=== PATIENT | female | born 1985 | race Caucasian/White ===

== ENCOUNTER 2019-10-31 17:09 | Emergency (ER) | payer SELFPAY ==
[2019-10-31 17:10] VITALS: BP 120/68; PULSE 81; RESP 16; TEMP 36.8; O2SAT 100; BMI 23.9
--- NOTE | 2019-10-31 17:17 | W.ED.WOUNDLC ---
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 It bit her on the right calf and has 1 puncture wound. Dog was shot. They did not contact animal control but she still has access to the dog. Patient has pain at the site she rates a 6 out of 10. She denies any worsening or improving factors. She had a tetanus done 10 years ago. Onset (ago): minute(s) Associated symptoms: Denies chills, fever(s), nausea or vomiting Review of Systems Const: Denies: fever, chills, body aches or change in appetite Eyes: Denies: blurry vision or eye discomfort ENMT: Denies: throat pain or dental pain Card: Denies: chest pain Resp: Denies: shortness of breath GI: Denies: abdominal pain, nausea, vomiting or diarrhea : Denies: painful urination Musc: Denies: neck pain or back pain Skin/Breast: Denies: rash Neuro: Denies: headache Psych: Denies: depression Amari/Lymph: Denies: easy bruising All/Imm: Denies: hives PFSH ED PFSH: Social History Smoking and tobacco status: current every day smoker Physical Exam Const: COMMON NORMALS: no apparent distress, oriented x3 and healthy appearing HENMT: COMMON NORMALS: normocephalic and head/scalp atraumatic HEAD & SCALP: normocephalic and atraumatic Eye: COMMON NORMALS: PERRL and EOMs intact bilaterally PUPIL: Yes PERRL Neck/C-Spine: COMMON NORMALS: full ROM and supple Chest: COMMONS NORMALS: inspection of chest normal and palpation of chest normal Resp: COMMON NORMALS: normal respiratory effort, no retractions, no use of accessory muscles and clear to auscultation bilaterally AUSCULTATION: clear to auscultation bilaterally Cardio: COMMON NORMALS: regular rate, regular rhythm and no murmurs RATE: regular rate RHYTHM: regular rhythm GI: COMMON NORMALS: normal to inspection, nondistended, normoactive bowel sounds, soft to palpation, non-tender and no masses PALPATION: Yes soft Extremity: COMMON NORMALS: normal to inspection and full ROM Neuro: COMMON NORMALS: oriented x3, moves all extremities and no focal motor deficits Psych: COMMON NORMALS: mental status grossly normal, thought process normal and cooperative THOUGHT PROCESS: normal thought process Skin: COMMON NORMALS: no rashes or lesions noted and no wounds NARRATIVE SKIN EXAM: Puncture wound to right lower leg GENERAL SKIN EXAM: no rashes or lesions noted Course Vital Signs: Vital signs: Vital Signs Temperature 98.2 F 10/31/19 17:10 Pulse Rate 81 10/31/19 17:10 Respiratory Rate 16 10/31/19 17:10 Blood Pressure 120/68 10/31/19 17:10 Pulse Oximetry 100 10/31/19 17:10 MDM - Wound/Laceration MDM Narrative: Medical decision making narrative: Patient presents here with dog bite. Patient has no large laceration and does not require sutures. Will place patient on antibiotics for prophylaxis. Patient given return instructions for signs of infection. They did shoot the dog in the head and buried it and shot status was not known. We will start her on rabies vaccine as well. Patient is stable for discharge at this time. Patient's tetanus was updated as well Discharge Plan Discharge Patient Disposition: Home, Self-Care Clinical Impression: Dog bite Qualifiers: Encounter type: initial encounter Qualified Code(s): W54.0XXA - Bitten by dog, initial encounter Condition: Stable Prescriptions: [place] 5-325 mg tablet 1 tab PO Q6H PRN (Reason: pain) Qty: 10 RF: 0 Augmentin 875-125 mg tablet 1 tab PO BID Qty: 14 RF: 0 Discharge Orders: Discharge Order (Routine); Ordered 10/31/19 Ordered By: Mason Alegria Discharge Diet: Advance as tolerated Discharge Activity: Resume usual activity Patient Instructions: Animal Bite (ED), Rabies (ED) Coding Level of Care Code ED [employer] for Balwinder Fwangelo Exam Comprehensive
[2019-10-31] MEDS: tetanus-dipt-pertussis 0.5 mL SDV IM (17:27)
[2019-10-31] MEDS: acetaminophen 500 mg Tablet 1000 MG PO (18:12)
[2019-10-31] MEDS: rabies vaccine 2.5 unit SDV IM (18:13)
[2019-10-31] MEDS: rabies IG 300 unit/mL SDV 1 mL 1200 UNIT INFILTRATI (18:15)
[2019-10-31 18:24] VITALS: BP 110/66; PULSE 77; O2SAT 100
== END 2019-10-31 18:24 | disposition home or self-care (01) ==
PROVIDERS: Emergency Provider Emergency Medicine
DX: S81.831A Puncture wound without foreign body, right lower leg, initial encounter (principal); W54.0XXA Bitten by dog, initial encounter; F17.200 Nicotine dependence, unspecified, uncomplicated
CPT/HCPCS: 12345; 90375; 90471; 90675; 90715; 99281; 99283

== ENCOUNTER → 2022-05-31 16:11 | Outpatient (BNVA) | payer MEDICAID, SELFPAY | PROVIDERS: Visit Provider Registered Nurse Neonatal Intensive Care | DX: M79.671 Pain in right foot (principal) | CPT/HCPCS: 73630 ==

== ENCOUNTER → 2023-08-23 11:17 | Outpatient (BNVA) | payer MEDICAID, SELFPAY | PROVIDERS: Visit Provider Registered Nurse Neonatal Intensive Care | DX: S90.32XA Contusion of left foot, initial encounter (principal); W22.8XXA Striking against or struck by other objects, initial encounter | CPT/HCPCS: 73630 ==

== ENCOUNTER 2024-08-05 08:45 | Outpatient (CLI) | payer MEDICAID, SELFPAY ==
--- NOTE | 2024-08-05 08:50 | MM_ITS ---
WS: [id number] SCREENING DIGITAL BREAST TOMOSYNTHESIS MAMMOGRAM WITH CAD HISTORY: SCREENING COMPARISON: None available. Bilateral CC and MLO with tomosynthesis and synthetic mammography submitted. Computer aided detection analyzed. Breast composition: The breasts are heterogeneously dense, which may obscure small masses. Focal asym metry measuring 12 mm best seen on the RIGHT MLO projection posterior to the nipple and in the latera l breast. Not definitely visualized on the CC projection. The LEFT breast is negative. MM/MM scr BI tomosynthesis [id number] IMPRESSION: BI-RADS: 0 - Incomplete: Need additional imaging evaluation FOLLOW UP: Need Additional Imaging RIGHT breast: Spot compression views (CC and MLO). True ML. Ultrasound to follo w if abnormality persists.
== END 2024-08-05 08:46 | disposition home or self-care (01) ==
LOC: RAD 08:46
PROVIDERS: PCP Family Medicine; Visit Provider Family Medicine
DX: Z12.31 Encounter for screening mammogram for malignant neoplasm of breast (principal); R92.333 Mammographic heterogeneous density, bilateral breasts; N64.89 Other specified disorders of breast
CPT/HCPCS: 77063; 77067

== ENCOUNTER 2024-09-05 13:04 | Outpatient (CLI) | payer MEDICAID, SELFPAY ==
--- NOTE | 2024-09-05 13:00 | MM_ITS ---
WS: [id number] ADDITIONAL VIEWS RIGHT MAMMOGRAM WITH DIGITAL BREAST TOMOSYNTHESIS. RIGHT BREAST ULTRASOUND HISTORY: ABNORMAL MAMMO COMPARISON: 08/05/2024 RIGHT MAMMOGRAM: Spot compression views and true ML with digital breast tomosynthesis and SM. Breast composition: The breasts are heterogeneously dense, which may obscure small masses. Asymmetry persists central to the nipple. There is dense fibroglandular tissue associated with the as ymmetry noted on the MLO projection just lateral to the nipple nearly completely resolves. RIGHT BREAST ULTRASOUND 2-D and color Doppler imaging submitted. Normal appearance of the soft tissues of the RIGHT upper outer quadrant. There is a benign lymph node at 9:00 measuring 11 x 7 x 4 mm. No area of shadowing or mass otherwise. MM/MM diag RT tomosynthesis [id number] IMPRESSION: BI-RADS: 2 - Benign FOLLOW UP: 1 Year Follow-up
--- NOTE | 2024-09-05 13:30 | US_ITS ---
WS: [id number] ADDITIONAL VIEWS RIGHT MAMMOGRAM WITH DIGITAL BREAST TOMOSYNTHESIS. RIGHT BREAST ULTRASOUND HISTORY: ABNORMAL MAMMO COMPARISON: 08/05/2024 RIGHT MAMMOGRAM: Spot compression views and true ML with digital breast tomosynthesis and SM. Breast composition: The breasts are heterogeneously dense, which may obscure small masses. Asymmetry persists central to the nipple. There is dense fibroglandular tissue associated with the as ymmetry noted on the MLO projection just lateral to the nipple nearly completely resolves. RIGHT BREAST ULTRASOUND 2-D and color Doppler imaging submitted. Normal appearance of the soft tissues of the RIGHT upper outer quadrant. There is a benign lymph node at 9:00 measuring 11 x 7 x 4 mm. No area of shadowing or mass otherwise. US/US breast RT limited* [id number] IMPRESSION: BI-RADS: 2 - Benign FOLLOW UP: 1 Year Follow-up
== END 2024-09-05 13:05 | disposition home or self-care (01) ==
LOC: RAD 13:08
PROVIDERS: PCP Family Medicine; Visit Provider Family Medicine
DX: R92.8 Other abnormal and inconclusive findings on diagnostic imaging of breast (principal); R92.331 Mammographic heterogeneous density, right breast; N64.89 Other specified disorders of breast; R59.0 Localized enlarged lymph nodes
CPT/HCPCS: 76642; 77061; G0279